=== PATIENT | male | born 1955 | race Caucasian/White ===

== ENCOUNTER 2022-03-22 01:59 | Day surgery (SDC) | payer MEDICARE, SELFPAY ==
[2022-03-12 15:45] VITALS: BMI 32.2
[2022-03-22 12:57] VITALS: BP 157/84; PULSE 75; RESP 18; TEMP 36.7; O2SAT 98; BMI 31.5
[2022-03-22] MEDS: LACTATED RINGERS 1,000 ML 150 ML IV CONT (13:17)
--- NOTE | 2022-03-22 13:38 | P.PNAN_ITS ---
Anes - Initial Pre Proc Eval Procedure: Operation Date: 03/22/22 14:00 Proposed Procedures p Colonoscopy - Danny Blake MD Date/Time: 03/22/22 13:38 Surgeon: Danny Blake MD Pre Op Diagnosis: diarrhea Patient Data Age: 67 Gender: M Height: 1.78 m Weight: 99.6 kg Last Vital Signs Temp 98.1 F 03/22/22 12:57 Pulse 75 03/22/22 12:57 Resp 18 03/22/22 12:57 BP 157/84 H 03/22/22 12:57 Pulse Ox 98 03/22/22 12:57 O2 Del Method Room Air 03/22/22 12:57 Allergies Allergy/AdvReac Type Severity Reaction Status Date / Time No Known Allergies Allergy Verified 03/22/22 13:07 Home Medications Medication Instructions Recorded Confirmed Type alprazolam 0.5 mg tablet 0.5 mg PO DAILY 03/12/22 03/22/22 History hydrocodone 5 mg-acetaminophen 325 1 tablet PO DAILY PRN Pain 03/12/22 03/22/22 History mg tablet levothyroxine 150 mcg tablet 150 mcg PO DAILY 03/12/22 03/22/22 History metoprolol succinate 100 mg 100 mg PO BID 03/12/22 03/22/22 History tablet,extended release 24 hr rosuvastatin 5 mg tablet 5 mg PO DAILY 03/12/22 03/22/22 History Patient hx anesthesia problems: none Family hx anesthesia problems: none Results Review: All pre-operative results and documents have been reviewed as part of the pre- operative evaluation. [facility] Social History Social History Smoking status: Never smoker Alcohol intake: never Substance use: never Substance use type: does not use Living arrangements: with family Spiritual care concerns: No Anes - Eval Final PreProcedure Day of Procedure 03/22/22 13:38 Patient weight: obese Heart: regular rate and rhythm Lungs: clear to auscultation Airway: Mallampati scale class II Neurological: alert and oriented Last oral intake: >/= 8 hours ASA classification: III Emergent: no Anesthetic plan: proceed Anesthesia type and monitoring: general GIVS and standard monitoring Results Review: All pre-operative results and documents have been reviewed as part of the pre- operative evaluation. Informed Consent: The patient's anesthetic plan and its attendant risks and benefits were discussed with the patient/family/POA. Questions were solicited and answers provided to the satisfaction of the patient/family/POA.
--- NOTE | 2022-03-22 13:49 | PM.HPGS ---
History of Present Illness History of Present Illness Consent: Risks, benefits, and alternatives have been discussed and questions answered. Patient agrees to proceed with procedure. Chief complaint: diarrhea Narrative: Morgan Marti is a 67 year old male With suffering from diarrhea for the past several months. He did have an infection with C diff but was treated twice and when last tested in late January he was negative for that. Review of Systems Review of Systems: All systems reviewed & are unremarkable except as noted in HPI and below PMFSH Social History Social History Smoking status: Never smoker Alcohol intake: never Substance use: never Substance use type: does not use Living arrangements: with family Spiritual care concerns: No Meds Home Medications and Allergies Home Medications Medication Instructions Recorded Confirmed Type alprazolam 0.5 mg tablet 0.5 mg PO DAILY 03/12/22 03/22/22 History hydrocodone 5 mg-acetaminophen 325 1 tablet PO DAILY PRN Pain 03/12/22 03/22/22 History mg tablet levothyroxine 150 mcg tablet 150 mcg PO DAILY 03/12/22 03/22/22 History metoprolol succinate 100 mg 100 mg PO BID 03/12/22 03/22/22 History tablet,extended release 24 hr rosuvastatin 5 mg tablet 5 mg PO DAILY 03/12/22 03/22/22 History Allergies Allergy/AdvReac Type Severity Reaction Status Date / Time No Known Allergies Allergy Verified 03/22/22 13:07 Vital Signs Vital Signs - 24 hr 03/22/22 12:57 Temperature 36.7 C Pulse Rate 75 Respiratory Rate 18 Blood Pressure 157/84 H Pulse Oximetry 98 Oxygen Delivery Room Air Exam Resp: Auscultation: clear to auscultation bilaterally Cardio: Rate: regular rate Rhythm: regular rhythm GI: GI Palp: Yes Soft to palpation and No Tenderness to palpation present (GI) Assessment and Plan Assessment and plan (1) Chronic diarrhea: Code(s): K52.9 - Noninfective gastroenteritis and colitis, unspecified Status: Acute Assessment and Plan: Colonoscopy with possible biopsy or polypectomy or cautery or injection of substances.
[2022-03-22 14:03] VITALS: BP 119/77; PULSE 68; RESP 25; O2SAT 97
[2022-03-22 14:13] VITALS: BP 151/86; PULSE 65; RESP 22; O2SAT 99
[2022-03-22 14:23] VITALS: BP 165/92; PULSE 58; RESP 15; O2SAT 98
== END 2022-03-22 14:29 | disposition home or self-care (01) ==
PROVIDERS: PCP Internal Medicine; Visit Provider Internal Medicine Gastroenterology
PROC: 0DJD8ZZ Inspection of Lower Intestinal Tract, Via Natural or Artificial Opening Endoscopic (ICD-10-PCS; CPT 45378; principal; 2022-03-22 14:00)
DX: K52.9 Noninfective gastroenteritis and colitis, unspecified (principal); D12.5 Benign neoplasm of sigmoid colon; K57.30 Diverticulosis of large intestine without perforation or abscess without bleeding
CPT/HCPCS: 45380; 88305; J2704; J7120